=== PATIENT | male | born 1975 | race Caucasian/White ===

== ENCOUNTER 2016-11-12 11:57 | Emergency (ER) | payer SELFPAY ==
[2016-11-12 12:10] VITALS: PULSE 84; O2SAT 98
--- NOTE | 2016-11-12 13:37 | C.PDOC ---
History Of Present Illness A 41 year old male, who denies any significant past medical history, presents to the emergency department for intermittent epigastric abdominal discomfort, which worsens after eating for the past 2 years. The patient reports the pain gets better after he takes medication that he thinks is an antacid. He also notes an abdominal wall bulge for the last 2 years. The patient denies any fevers, nausea, vomiting, diarrhea, constipation, or any other complaints at this time. Time Seen by Provider: 11/12/16 13:09 Chief Complaint (Nursing): Abdominal Pain History Per: Patient History/Exam Limitations: language barrier Onset/Duration Of Symptoms: Intermittent Episodes (for the past 2 years) Context: Food Severity: None Location Of Pain/Discomfort: Epigastric, Periumbilical Radiation Of Pain To:: None Associated Symptoms: denies: Fever, Nausea, Vomiting, Diarrhea Past Medical History Vital Signs: Last Vital Signs Temp 97.6 F 11/12/16 13:47 Pulse 84 11/12/16 13:47 Resp 18 11/12/16 13:47 BP 127/84 11/12/16 13:47 Pulse Ox 98 11/12/16 15:38 Family History: States: No Known Family Hx - Social History Hx Alcohol Use: No Hx Substance Use: No Review Of Systems Except As Marked, All Systems Reviewed And Found Negative. Constitutional: Negative for: Fever Gastrointestinal: Positive for: Abdominal Pain. Negative for: Nausea, Vomiting , Diarrhea Physical Exam - Physical Exam Additional Physical Exam Comments: Constitutional: No acute distress. Head: Normocephalic. Atraumatic. Eyes: PERRL. EOMI. ENT: Moist mucous membranes. Neck: Supple. Cardiovascular: Regular rate. Radial pulses 2+ bilaterally. Chest: No tenderness. Respiratory: Clear to auscultation bilaterally. GI: Nontender. Palpable small hernia, reducible. Soft. Nondistended. Back: No CVA tenderness. Musculoskeletal: No tenderness or swelling of extremities. Skin: No rash. Neurologic: Alert, no focal deficit. ED Course And Treatment O2 Sat by Pulse Oximetry: 98 Medical Decision Making Medical Decision Making: Patient with no abdominal tenderness and reducible hernia without symptoms of obstruction. Patient's complaints span 2 years duration. No indication for further emergent evaluation or treatment at this time. Recommend f/u with clinic /GI. Follow up information provided. Discharged home, return to ER for worsening pain, fever, vomiting, constipation, skin changes, or any other problem. Disposition - Disposition Referrals: [facility] [Outside] Disposition: HOME/ ROUTINE Disposition Time: 13:36 Condition: STABLE Instructions: Ventral Hernia (ED) Forms: [facility] (Arabic) - Clinical Impression Clinical Impression: Hernia - Scribe Statement The provider has reviewed the documentation as recorded by the Scribe Migdalia Santana All medical record entries made by the Scribe were at my direction and personally dictated by me. I have reviewed the chart and agree that the record accurately reflects my personal performance of the history, physical exam, medical decision making, and the department course for this patient. I have also personally directed, reviewed, and agree with the discharge instructions and disposition.
[2016-11-12 13:48] VITALS: BP 127/84; RESP 18; TEMP 97.6
== END 2016-11-12 13:48 | disposition home or self-care (01) ==
LOC: C.ER 11:57
DX: K43.9 Ventral hernia without obstruction or gangrene (principal)

== ENCOUNTER 2017-09-10 06:06 | Day surgery (SDC) | payer OTHER ==
[2017-09-10 06:30] VITALS: BMI 30.4
[2017-09-10] MEDS ORDERED: Bupivacaine HCl 0.25% PF (30 ml) Inj ONE (07:14)
[2017-09-10] MEDS ORDERED: Lidocaine Hydrochloride 20 ML INJ ONE (07:14)
[2017-09-10] MEDS ORDERED: ceFAZolin IV 1 gm in Dextrose 2 GM/100 ML BAG IVPB ONE (07:14)
[2017-09-10] MEDS ORDERED: Propofol 10 mg/ml Inj (20 ML) ONE (07:20)
[2017-09-10] MEDS ORDERED: Rocuronium 10 mg/ml (5 ml) ONE (07:22)
[2017-09-10] MEDS ORDERED: Midazolam 2 MG/2 ML VIAL ONE (07:24)
[2017-09-10] MEDS ORDERED: Neostigmine Methylsulfate 3mg/3ml Syringe IV ONE (09:53)
[2017-09-10] MEDS ORDERED: HYDROmorphone 0.5 mg/0.5 ml ISec IVP PRN (10:27)
--- NOTE | 2017-09-10 10:31 | PCM.SURG1 ---
Surgeon's Initial Post Op Note - Surgeon's Notes Surgeon: Dr. Colunga Diaper Machine Tender: Dr. Mccarty PGY2 Type of Anesthesia: General Endo Pre-Operative Diagnosis: Left Inguinal Hernia, Umbilical hernia Operative Findings: See operative dictation Post-Operative Diagnosis: Left Indirect Inguinal Hernia, Epigastric Hernia Operation Performed: Robotic laparoscopic left inguinal hernia repair with mesh , primary repair of epigastric hernia Specimen/Specimens Removed: Epigastric hernia fat Estimated Blood Loss: EBL {In ML}: 20 Blood Products Given: N/A Drains Used: No Drains Post-Op Condition: Good Date of Surgery/Procedure: 09/10/17 Time of Surgery/Procedure: 10:31
[2017-09-10 17:25] LABS: BASO % 0.1 % (0.0-2.0); HEMOGLOBIN 14.4 g/dL (12.0-18.0); LYMPH # 0.8 K/uL (1.0-4.3); LYMPH % 11.8 % (20.0-40.0); MEAN CORPUSCULAR HGB CONC 34.1 g/dL (33.0-37.0); MEAN PLATELET VOLUME 7.2 fL (7.2-11.7); MONO # 0.3 K/uL (0.0-0.8); MONO % 3.7 % (0.0-10.0); NEUT % 84.4 % (50.0-75.0); RBC 5.16 Mil/uL (4.40-5.90); RED CELL DISTRIBUTION WIDTH 13.4 % (11.5-14.5); WHITE BLOOD COUNT 7.1 K/uL (4.8-10.8)
[2017-09-10 18:28] VITALS: RESP 16; O2SAT 100
[2017-09-10 19:10] VITALS: BP 109/67; PULSE 68; TEMP 97.6
--- NOTE | 2017-09-10 22:43 | PCM.OP ---
Operative Report - Operative Report Date of Surgery/Procedure: 09/10/17 Time of Surgery/Procedure: 07:30 Surgeon: Vikki Colunga MD Automobile Mechanic Assistant: Wagner Mccarty DO (PGY2 resident), Leonie PRATHER Anesthesia/Sedation: Anesthesia: General endotracheal; 1% lidocaine + 0.25% Marcain mix local anesthesia Pre-Operative Diagnosis: Left inguinal hernia. Epigastric ventral hernia Post-Operative Diagnosis: Left indirect inguinal hernia. Epigastric hernia Indication for Surgery: 42 year old male presented to my office with an inguinal hernia on the left and fat containing epigastric hernia which were both symptomatic. Further details of HPI in clinical chart. I have reviewed the risks and benefits of inguinal hernia repairs in detail as documented in the clinic chart. Specifically, we have noted the incidence of nerve injury and hernia recurrence. The patient consented to the procedure following these discussions and prior to the operation. Operative Findings: Large indirect left inguinal hernia. 6mm epigastric hernia defect containing fat Procedure/Operation Description: PROCEDURE PERFORMED 1) Laparoscopic, Robotic Assisted left Inguinal Hernia Repair (Transabdominal preperitoneal, LITO procedure, Progrip mesh). 2) Primary suture repair of epigastric hernia ( as part of closure). DESCRIPTION OF PROCEDURE: The patient was given a preoperative dose of Ancef 1g 20 minutes before the incision. The patient had voided immediately prior to being brought to operating room and no trujillo catheter was used. He was taken to the operating room and placed supine on the operating room table with both arms on padded armboard placed at patients side in neutral position. Following successful endotracheal intubation, abdominal hair removed with shaver and upper body warming blanket placed to maintain body temperature. Sequential compression stockings placed for DVT prophylaxis. A time out was performed prior to incision. The abdomen was prepped and draped in sterile fashion. A skin incision was made in the left upper quadrant at palmers point following injection of local anesthesia. A 5m 0 degree laparoscope was placed inn 8mm optically viewing robot trocar and abdominal access gained with optical entry. All layers of the abdominal wall were visualized and trocar placed into the peritoneal cavity. abdomen was insufflated to 15 mmHg pressure with CO2. A 5mm 0 degree laparoscope was then inserted and the abdomen and no injury noted from entry. The patients epigastric hernia was noted approximately 3cm cephalad to the umbilicus. I elected to use this midline hernia at the site of my camera port. Next the camera was removed and incsion made directly over the epigastric hernia. Fatty contents were dissecton down until the fascial edges free circumferentially and speciemen sent off pathology. The epigastric hernia defect measured approximately 6mm. The abdomen was then reinsufflated and camera re-inserted. Two additional 8mm robot working ports were then placed under direct vision, 1 in the midline hernia defect, 1 in the right upper mid abdomen directly across from our entry site on the left. Once these were inserted, the patient was placed in slight trendelberg. A face protecting foam was placed over the patient's face and the robot was docked to the patient. Robotic instruments were then inserted under direct visualization. A 30 degree robotic camera was inserted in the umbilical port, a fenestrated bipoar grasper was placed in the left lateral port, and monopolar curved scissors placed right medial port, and monopolar cautery in the left abdominal port. The hernia was visualized and found to be lateral to the inferior epigastric vessels. The peritoneum was dissected down from the abdominal wall approximately 4 cm above the hernia defect. A peritoneal flap was created using a combination of blunt and electrocautey dissection posterior to the rectus muscle,from the left umbilicl fold medial to the ASIS laterally. Dissection was carried down inferiorly in midline to pubis and space of retzius dissected. Laterally the space of bogros was dissected to psoas muscle. Identification of the epigastrics was completed and the hernia was noted to be indirect in nature. The hernial sac was gently reduced from the indirect space taking care not to injure or overly dissect the cord structures. The vas and vessels were kept together in natural bed. The edge of the hernial sac was identified and reduced far down off of the cord structures. Once this was completed, a Parietex Progrip inguinal mesh was placed into the preperitoneal space. It was placed over the myopectineal orifice with the inferior edge in front of all peritoneum and covering. The mesh is self-fixating and no tacks were used. Once this was completed, the lower edge of the mesh were ensured to be covering the peritoneal edge. The peritoneal flap was then closed usin running 2-0 v-loack barbed suture. The robot was then undocked from the patient and scrubbed back in at bedside. The ports were removed under direct vision and the abdomen desufflated. The epigastric hernia site fascia was then closed using interrupted 1-maxon suture x 3. The skin incisions were closed with 4-0 monocryl sutures then dermabond applied to skin. Both testes was identified to be within the scrotum at the end of the case. The patient was extubated in the OR without incident and transferred to recovery in stable condition. I was present throughout the entirety of the case. Sponge, needle and instrument counts were correct. Estimated Blood Loss: 20 Complications: none Specimen: Epigastric hernia contents Discharge & Condition: to recovery in stable condition.
== END 2017-09-10 19:00 | disposition home or self-care (01) ==
LOC: C.SDS 06:06
PROVIDERS: ATTEND Surgery
DX: K43.9 Ventral hernia without obstruction or gangrene (principal); K40.90 Unilateral inguinal hernia, without obstruction or gangrene, not specified as recurrent; M10.9 Gout, unspecified; E66.9 Obesity, unspecified; Z79.899 Other long term (current) drug therapy
CPT/HCPCS: 36415; 49650; 49652; 85025; 88302; J0690; J1100; J1885; J2001; J2250; J2405; J2704; J2710; J3010